=== PATIENT | female | born 1955 | race Asian ===

== ENCOUNTER 2017-08-02 07:52 | Day surgery (SDC) | payer OTHER ==
[2017-08-02] MEDS ORDERED: FENTAnyl 50 MCG/ML VIAL (10:38)
[2017-08-02] MEDS ORDERED: MIDAZOLAM 1 MG/ML 2 ML INJ ×2 (10:38)
== END 2017-08-02 11:16 | disposition home or self-care (01) ==
LOC: GIL 07:52
DX: Z12.11 Encounter for screening for malignant neoplasm of colon (principal); D12.5 Benign neoplasm of sigmoid colon; K57.90 Diverticulosis of intestine, part unspecified, without perforation or abscess without bleeding; K64.8 Other hemorrhoids; I10 Essential (primary) hypertension
CPT/HCPCS: 45380; 88305